=== PATIENT | male | born 1995 | race Caucasian/White ===

== ENCOUNTER 2023-09-04 17:29 | Observation (INO) | payer MEDICAID, SELFPAY ==
[2023-09-04 17:30] VITALS: BP 144/99; PULSE 114; RESP 18; TEMP 36.8; O2SAT 99; BMI 26.3
[2023-09-04 19:02] LABS: Amphetamine Urine VISTA NEGATIVE (<1000 ng/mL); Barbiturate Urine VISTA NEGATIVE (< 200 ng/mL); Benzodiazepine Urine VISTA NEGATIVE (< 200 ng/mL); Cocaine Urine VISTA NEGATIVE (< 300 ng/mL); Ecstacy Urine VISTA NEGATIVE (< 500 ng/mL); Methadone Urine VISTA NEGATIVE (< 300 ng/mL); PCP Urine VISTA NEGATIVE (< 25 ng/mL); THC Urine VISTA NEGATIVE (< 50 ng/mL); Vista UDS pH Range 5
[2023-09-04 19:34] VITALS: BP 139/88; PULSE 103; RESP 17; O2SAT 97
[2023-09-04 19:54] LABS: Absolute Lymphocyte Count 1.73 X10^3/uL (0.83-4.51); Basophil# 0.07 X10^3/uL; Basophil% 0.8 % (0-1); Eosinophil# 0.12 X10^3/uL; Eosinophils% 1.4 % (0-5); Hematocrit 40.5 % (40-54); Hemoglobin 13.6 g/dL (13.0-16.5); Lymphocyte # 1.73 X10^3/ul (0.83-4.51); Lymphocyte % 19.7 % (19-41); Mean Corp Hgb Conc 33.6 g/dL (32-36); Mean Corpuscular Hgb 29.5 pg (27.0-32.0); Mean Corpuscular Volume 87.9 fL (80-94); Monocyte# 0.85 X10^3/uL; Monocyte% 9.7 % (0-10); NRBC Flagged by Analyzer 0 % (0-5); Neutrophil # 5.96 X10^3/uL (2.7-7.7); Neutrophil % 67.9 % (47-70); Platelet Count 459 K/mm3 (150-450); RBC Distribution Width CV 12.9 % (11.6-14.6); RBC Distribution Width SD 41.6 fl (35.1-43.9); Red Blood Count 4.61 M/mm3 (4.6-6.2); White Blood Count 8.8 K/mm3 (4.4-11.0)
[2023-09-04 20:22] LABS: Anion Gap 5 (5-15); BUN 21 mg/dL (7-18); BUN/Creat Ratio 24.1 RATIO (10-20); Calcium,Total 8.9 mg/dL (8.5-10.1); Chloride 103 mmol/L (98-107); Creatinine, Serum 0.87 mg/dL (0.70-1.30); EST Glomerular Filtration Rate 109 mL/min (>60); Est Glom Filt Rate - Afr Amer 132 mL/min (>60); Estimated Creatinine Clearance 128.19 ml/min; Glucose 99 mg/dL (74-106); Potassium 3.7 mmol/L (3.5-5.1); Sodium Level 136 mmol/L (136-145)
--- NOTE | 2023-09-04 20:24 | HP.PCM.HOS_ITS ---
[facility] - General General Date of Admission: 09/04/23 Date of Service: 09/04/23 Chief Complaint: Wants help to quit heroin HPI Narrative YANIRA ESQUIVEL, is a 28 M with a past medical history of tobacco abuse and heroin abuse for the past year with patient routinely using approximately 1 g/day who presents to [facility] ER complaining that he wants help to quit using heroin. Mr. Esquivel reports his symptoms began approxima tely 24 hours prior to admission when he decided that he needed to quit after multiple members of his family strongly encouraged him to do so. He admits to anxiety and obsessive thoughts about getting high but he denies fevers, chills, nausea, vomiting or diarrhea. In the ER he was diagnosed with impending opiate withdrawal in the setting of chronic heroin abuse and he was then admitted to the general medical floor for medical stabilization and detoxification for a stay that is expected to extend beyond 48 hours [facility] Medical History Hypertension Hypertension Substance abuse Home Medications NK 09/04/23 [History Last Taken Unknown] Allergy/AdvReac Type Severity Reaction Status Date / Time No Known Allergies Allergy Verified 09/04/23 17:31 Social History Smoking Status: Never smoker ROS ROS Narrative Review of systems: Constitutional: Patient denies fever or chills Eyes: Patient denies visual changes ENT: Patient denies runny nose or sore throat Respiratory: Patient denies shortness of breath or cough Cardiovascular: Patient denies chest pain or palpitations Gastrointestinal: Patient denies abdominal pain, nausea, vomiting or diarrhea Genitourinary: Patient denies dysuria or urinary frequency Integumentary: Patient denies abscess or rash Allergy: Patient denies urticaria 14 point review systems otherwise negative except for positives noted above in HPI. Vital Signs Vital Signs Vital Signs: 09/04/23 17:30 09/04/23 19:34 Temperature 98.2 F Temperature Source Temporal Pulse Rate 114 H 103 H Respiratory Rate 18 17 Blood Pressure 144/99 H 139/88 H Blood Pressure Mean 114 105 Pulse Ox 99 97 Oxygen Delivery Method Room Air Weight Weight: 183 lb 11.2 oz Body Mass Index (BMI) 26.3 Physical Exam Const alert, oriented x3, no apparent distress, average body habitus and healthy appea ring General Appearance: cooperative HEENT normocephalic, head/scalp atraumatic, hearing grossly normal bilaterally, moist oral mucous membranes and oropharynx normal Eyes PERRL, EOMs intact bilaterally and conjunctivae normal Neck no lymphadenopathy, supple, no JVD and no carotid bruits Resp normal respiratory effort, no retractions, no use of accessory muscles and clear to auscultation bilaterally Cardio regular rate and regular rhythm GI normal to inspection, nondistended, normoactive bowel sounds, soft to palpation, non-tender and non-distended Extremity normal to inspection, full ROM and no clubbing, cyanosis or edema Skin Skin Narrative: Patient's both upper extremities are heavily tattooed. Neuro oriented x3, CN's II-XII intact bilaterally, moves all extremities and no focal motor deficits Sensorium / Orientation: awake, alert, oriented to person, oriented to place and oriented to time Speech: speech normal Motor Exam: strength 5/5 throughout Psych affect normal Results Lab / Micro Data Attestation: I reviewed the patient's lab results. 09/04/23 19:40 09/04/23 19:40 Labs: Laboratory Results - last 24 hr 09/04/23 18:15: Urine Opiates Screen NEGATIVE, Urine Methadone Screen NEGATIVE, Ur Barbiturates Screen NEGATIVE, Ur Phencyclidine Scrn NEGATIVE, Ur Amphetamines Screen NEGATIVE, MDMA (Ecstasy) Screen NEGATIVE, U Benzodiazepines Scrn NEGATIVE, Urine Cocaine Screen NEGATIVE, U Cannabinoids Screen NEGATIVE, Ur Drug Screen Comment 09/04/23 19:40: WBC 8.8, RBC 4.61, Hgb 13.6, Hct 40.5, MCV 87.9, MCH 29.5, MCHC 33.6, RDW Std Deviation 41.6, RDW Coeff of Adeel 12.9, Plt Count 459 H, MPV 9.0, Immature Gran % (Auto) 0.500, Neut % (Auto) 67.9, Lymph % (Auto) 19.7, [place] % (Auto) 9.7, Eos % (Auto) 1.4, Baso % (Auto) 0.8, Absolute Neuts (auto) 6.0, A bsolute Lymphs (auto) 1.73, Nucleated RBC % 0, Sodium 136, Potassium 3.7, Chloride 103, Carbon Dioxide 28.0, Anion Gap 5, BUN 21 H, Creatinine 0.87, Estim Creat Clear Calc 128.19, Est GFR (MDRD) Af Amer 132, Est GFR (MDRD) Non-Af 109, BUN/Creatinine Ratio 24.1 H, Glucose 99, Calcium 8.9 Assessment & Plan Assessment/Plan (1) Opiate addiction: QUALIFIERS: Substance use status: uncomplicated Qualified Code(s): F11.20 - Opioid dependence, uncomplicated PLAN: Plan 1. Impending acute opiate withdrawal in the setting of chronic heroin abuse - Admit to general medical floor for treatment under opiate withdrawal protocol. Heroin abuse as well as other illicit drug use was strongly discouraged. Finally, we will consult addiction counselor and case management to help this patient formulate and execute a plan for sobriety. 2. Tobacco abuse - Tobacco cessation was strongly encouraged. Give nicotine patch to control cravings. 3. DVT prophylaxis - Lovenox 40 mg subcu daily. Total time: Approximately 40 minutes. Charges/Coding Visit Charges Inpatient E&M: 75190 Init Hosp L1
[2023-09-04 20:33] LABS: Alcohol, Blood (Medical)-Serum < 3.0 mg/dL
[2023-09-04 21:43] VITALS: BMI 25.2
[2023-09-04 21:51] VITALS: BP 154/86; PULSE 89; RESP 16; TEMP 36.6; O2SAT 100
[2023-09-04] MEDS: MELATONIN 3 MG TABLET PO (22:57)
[2023-09-04] MEDS: hydrOXYzine PAM 25 MG Capsule 50 MG PO (22:57)
[2023-09-05 04:00] VITALS: BP 119/88; PULSE 78; RESP 16; TEMP 36.8; O2SAT 100
[2023-09-05] MEDS: Gabapentin 300 MG Capsule PO (04:22)
[2023-09-05] MEDS: Buprenorphine HCl 2 MG TAB.SUBL SL ×3 (04:33→20:22)
[2023-09-05] MEDS: Methocarbamol 750 MG Tablet PO ×3 (06:03→20:31)
[2023-09-05] MEDS: hydrOXYzine PAM 25 MG Capsule 50 MG PO ×4 (06:04→18:20)
[2023-09-05] MEDS: Dicyclomine 10 MG Capsule 20 MG PO (07:26)
[2023-09-05] MEDS: Acetaminophen 325 MG Tablet 650 MG PO ×2 (07:27→20:31)
[2023-09-05] MEDS: cloNIDine HCl 0.1 MG Tablet PO ×2 (07:27→15:33)
[2023-09-05 09:12] VITALS: BP 139/85; PULSE 93; RESP 18; TEMP 36.6; O2SAT 98
--- NOTE | 2023-09-05 11:32 | ADDICTION ---
This entry writer met with PT to conduct ASAM, MSE, AUDIT, DUDIT assessments and to plan for d/c. PT A+Ox4 and participated actively. All assessments completed and placed in PT's chart. PT plans to f/u with treatment services, however he wanted to discuss it with his family upon d/c. This worker offered resources. PT did not indicate a need for transportation post d/c from [facility].
[2023-09-05 14:06] VITALS: BP 129/79; PULSE 83; RESP 18; TEMP 36.5; O2SAT 100
--- NOTE | 2023-09-05 15:14 | PCM.PN.HOSP ---
Reason for Visit Reason for Visit: Diagnoses Opioid dependence, uncomplicated (09/04/23) Subjective Subjective Patient laying on side in bed, thinks the medicine might be helping, feeling tired Objective Data Objective Data Vital Signs: Vital Signs Temp Pulse Resp BP Pulse Ox O2 Del Method 97.7 F L 83 18 129/79 H 100 Room Air 09/05/23 14:06 09/05/23 14:06 09/05/23 14:06 09/05/23 14:06 09/05/23 14:06 09/05/23 14:06 Oxygen Delivery Method Room Air Weight: 79.832 kg Body Mass Index (BMI) 25.2 Lab / Micro Data 09/04/23 19:40 09/04/23 19:40 Labs: Laboratory Results - last 24 hr 09/04/23 18:15: Urine Opiates Screen NEGATIVE, Urine Methadone Screen NEGATIVE, Ur Barbiturates Screen NEGATIVE, Ur Phencyclidine Scrn NEGATIVE, Ur Amphetamines Screen NEGATIVE, MDMA (Ecstasy) Screen NEGATIVE, U Benzodiazepines Scrn NEGATIVE, Urine Cocaine Screen NEGATIVE, U Cannabinoids Screen NEGATIVE, Ur Drug Screen Comment 09/04/23 19:40: WBC 8.8, RBC 4.61, Hgb 13.6, Hct 40.5, MCV 87.9, MCH 29.5, MCHC 33.6, RDW Std Deviation 41.6, RDW Coeff of Adeel 12.9, Plt Count 459 H, MPV 9.0, Immature Gran % (Auto) 0.500, Neut % (Auto) 67.9, Lymph % (Auto) 19.7, [place] % (Auto) 9.7, Eos % (Auto) 1.4, Baso % (Auto) 0.8, Absolute Neuts (auto) 6.0, Absolute Lymphs (auto) 1.73, Nucleated RBC % 0, Sodium 136, Potassium 3.7, Chloride 103, Carbon Dioxide 28.0, Anion Gap 5, BUN 21 H, Creatinine 0.87, Estim Creat Clear Calc 128.19, Est GFR (MDRD) Af Amer 132, Est GFR (MDRD) Non-Af 109, BUN/Creatinine Ratio 24.1 H, Glucose 99, Calcium 8.9, Ethyl Alcohol < 3.0 Physical Exam Narrative General: Alert HEENT: Atraumatic, normocephalic Eyes: Resting with eyes closed comfortably Neck: Supple Respiratory: normal respiratory effort GI: nondistended Extremities: Curled up in bed under covers Neuro: No overt focal neurological deficits Psych: Minimally cooperative Assessment & Plan Assessment/Plan (1) Opiate addiction: QUALIFIERS: Substance use status: uncomplicated Qualified Code(s): F11.20 - Opioid dependence, uncomplicated PLAN: Plan 1. Impending acute opiate withdrawal in the setting of chronic heroin abuse - Admit to general medical floor for treatment under opiate withdrawal protocol. Heroin abuse as well as other illicit drug use was strongly discouraged. Finally, we will consult addiction counselor and case management to help this patient formulate and execute a plan for sobriety. -09/05: Continue Subutex taper, continue other supportive medications 2. Tobacco abuse - Tobacco cessation was strongly encouraged. Give nicotine patch to control cravings. 3. DVT prophylaxis -low risk, ambulatory Total time: Approximately 22 minutes. Charges/Coding Visit Charges Inpatient E&M: 17563 [facility] Hosp L1
[2023-09-05] MEDS: MELATONIN 3 MG TABLET PO (20:30)
[2023-09-05 20:34] VITALS: BP 118/83; PULSE 93; RESP 16; TEMP 36.9; O2SAT 100
[2023-09-06] MEDS: Methocarbamol 750 MG Tablet PO ×2 (05:16→18:54)
[2023-09-06] MEDS: Buprenorphine HCl 2 MG TAB.SUBL SL ×3 (05:16→21:14)
[2023-09-06] MEDS: hydrOXYzine PAM 25 MG Capsule 50 MG PO ×3 (05:17→18:57)
[2023-09-06 05:29] VITALS: BP 123/79; PULSE 78; RESP 16; TEMP 36.4; O2SAT 100
--- NOTE | 2023-09-06 08:15 | PCM.PN.HOSP ---
Reason for Visit Reason for Visit: Diagnoses Opioid dependence, uncomplicated (09/04/23) Subjective Subjective Patient in bed with covers pulled over her head, superficially cooperative, has no acute complaints Objective Data Objective Data Vital Signs: Vital Signs Temp Pulse Resp BP Pulse Ox O2 Del Method 97.6 F L 78 16 123/79 H 100 Room Air 09/06/23 05:29 09/06/23 05:29 09/06/23 05:29 09/06/23 05:29 09/06/23 05:29 09/06/23 05:29 Oxygen Delivery Method Room Air Weight: 79.832 kg Body Mass Index (BMI) 25.2 Lab / Micro Data 09/04/23 19:40 09/04/23 19:40 Physical Exam Narrative Patient lying in bed with blankets pulled over her head when asking to speak with him patient remains in same state and leans covers over her head, minimally interactive and minimally willing to cooperate/superficial cooperation Assessment & Plan Assessment/Plan (1) Opiate addiction: QUALIFIERS: Substance use status: uncomplicated Qualified Code(s): F11.20 - Opioid dependence, uncomplicated PLAN: Plan 1. Impending acute opiate withdrawal in the setting of chronic heroin abuse - Admit to general medical floor for treatment under opiate withdrawal protocol. Heroin abuse as well as other illicit drug use was strongly discouraged. Finally, we will consult addiction counselor and case management to help this patient formulate and execute a plan for sobriety. -09/05: Continue Subutex taper, continue other supportive medications -09/06: Patient not particularly cooperative however tolerating taper, will likely be able to DC home tomorrow 2. Tobacco abuse - Tobacco cessation was strongly encouraged. Give nicotine patch to control cravings. 3. DVT prophylaxis -low risk, ambulatory Total time: Approximately 22 minutes. Charges/Coding Visit Charges Inpatient E&M: 20432 Subs Hosp L1
[2023-09-06 09:50] VITALS: BP 136/74; PULSE 78; RESP 18; TEMP 36.6; O2SAT 95
[2023-09-06] MEDS: cloNIDine HCl 0.1 MG Tablet PO ×2 (13:26→21:14)
--- NOTE | 2023-09-06 13:36 | ADDICTION ---
Pt was met with for residential screening d/t pt interest in continuing [facility] care in an inpatient setting. Pt was provided education on tx options available and risk factors associated with being discharged from detox back into the community. Pt admits he is at risk of relapse and overdose if he does not follow up with a structured and supervised residential placement. Pt states 3 days just isn't enough. Pt reports severe cravings, using thoughts, discomfort, body aches, and anxiety w/restlessness. Pt was encouraged to discuss his worsening sxs with RN. Pt was assessed for residential at [facility] with [facility] and his admission was approved by admit team. Pt is scheduled to admit to [facility] on 09/08/23. [facility] staff to transport pt to [facility] on Friday. It is recommended that this pt remain in detox and follow through with a direct admit to residential d/t severity of pt's risk factors.
[2023-09-06 16:07] VITALS: BP 112/72; PULSE 106; RESP 18; TEMP 36.6; O2SAT 99
[2023-09-06 21:05] VITALS: BP 103/54; PULSE 82; RESP 16; TEMP 36.7; O2SAT 98
[2023-09-06] MEDS: Acetaminophen 325 MG Tablet 650 MG PO (21:13)
[2023-09-06] MEDS: MELATONIN 3 MG TABLET PO (21:14)
[2023-09-07] MEDS: Buprenorphine HCl 2 MG TAB.SUBL SL ×2 (04:55→16:41)
[2023-09-07] MEDS: hydrOXYzine PAM 25 MG Capsule 50 MG PO ×3 (04:55→21:41)
[2023-09-07 04:58] VITALS: BP 113/71; PULSE 80; RESP 17; TEMP 36.6; O2SAT 100
--- NOTE | 2023-09-07 07:47 | PCM.PN.HOSP ---
Reason for Visit Reason for Visit: Diagnoses Opioid dependence, uncomplicated (09/04/23) Subjective Subjective No acute complaints, agreeable to inpatient rehab tomorrow Objective Data Objective Data Vital Signs: Vital Signs Temp Pulse Resp BP Pulse Ox O2 Del Method 97.8 F 80 17 113/71 100 Room Air 09/07/23 04:58 09/07/23 04:58 09/07/23 04:58 09/07/23 04:58 09/07/23 04:58 09/07/23 04:58 Oxygen Delivery Method Room Air Weight: 79.832 kg Body Mass Index (BMI) 25.2 Lab / Micro Data 09/04/23 19:40 09/04/23 19:40 Physical Exam Narrative Lying in bed in no acute distress with eyes resting comfortably, when trying to talk to patient he turns to the side and pulls covers over him. Not acutely distressed Assessment & Plan Assessment/Plan (1) Opiate addiction: QUALIFIERS: Substance use status: uncomplicated Qualified Code(s): F11.20 - Opioid dependence, uncomplicated PLAN: Plan 1. Impending acute opiate withdrawal in the setting of chronic heroin abuse - Admit to general medical floor for treatment under opiate withdrawal protocol. Heroin abuse as well as other illicit drug use was strongly discouraged. Finally, we will consult addiction counselor and case management to help this patient formulate and execute a plan for sobriety. -09/05: Continue Subutex taper, continue other supportive medications -09/06: Patient not particularly cooperative however tolerating taper, will likely be able to DC home tomorrow -09/07: Patient's brother will not let patient come back without going to an inpatient rehab, patient now agreeable to inpatient rehab and will have bed and transport tomorrow, will DC tomorrow to rehab 2. Tobacco abuse - Tobacco cessation was strongly encouraged. Give nicotine patch to control cravings. 3. DVT prophylaxis -low risk, ambulatory Total time: Approximately 22 minutes. Charges/Coding Visit Charges Inpatient E&M: 70514 [facility] Hosp L1
[2023-09-07 10:00] VITALS: BP 138/85; PULSE 82; RESP 18; TEMP 36.6; O2SAT 100
[2023-09-07 15:50] VITALS: BP 115/78; PULSE 90; RESP 18; TEMP 36.6; O2SAT 100
[2023-09-07 15:54] VITALS: PULSE 90; RESP 18; O2SAT 100
[2023-09-07] MEDS: cloNIDine HCl 0.1 MG Tablet PO (17:51)
[2023-09-07 21:33] VITALS: BP 109/85; PULSE 93; RESP 16; TEMP 36.5; O2SAT 100
[2023-09-07] MEDS: MELATONIN 3 MG TABLET PO (21:41)
[2023-09-08 04:42] VITALS: BP 119/92; PULSE 74; RESP 16; TEMP 36.4; O2SAT 98
--- NOTE | 2023-09-08 07:34 | DCINST_ITS ---
Discharge Instructions Diet Discharge Diet: No restrictions Activity Discharge Activity: Return to Normal Activity Follow Up Care Test Results: Test results from this visit will be discussed in further detail at your follow- up appointment, if applicable. Discharge Plan Admission Admit Date/Time: 09/04/23 20:37 Primary Reason for Your Visit: Opioid detox Attending Provider: Gerri Flower Primary Care Provider: Care Physician,No Primary Consulting Providers: Edison Wolfe Instructions Patient Instructions: ED Opiate Abuse Additional Instructions / Restrictions: - It is strongly advised that you refrain from any substance use. Please call [facility] located at [address] [place] [phone] (ph [phone]) if you are interested in further resources -If you do not have a primary care physician of list of local primary care physicians can be provided for you upon discharge. Please ask for this list prior to discharge Discharge Orders/Prescriptions Prescriptions: No Action NK Referrals / Follow Up: Care Physician,No Primary [Primary Care Provider] - ( -If you do not have a primary care physician of list of local primary care physicians can be provided for you upon discharge. Please ask for this list prior to discharge ) Disposition Disposition (needs filled in before D/C Order can be placed): DC/Tx to Another Type of HCF
--- NOTE | 2023-09-08 07:36 | DS.PCM_ITS ---
Providers Date of Admission: 09/04/23 Date of Discharge: 09/08/23 Primary Care Physician: Alanis Primary Care Phys Reason For Visit: IMPENDING ACUTE OPIATE WITHDRAWL Diagnosis Discharge Diagnosis (1) Opiate addiction: Status: Acute Code(s): F11.20 - Opioid dependence, uncomplicated Qualifiers: Substance use status: uncomplicated Qualified Code(s): F11.20 - Opioid dependence, uncomplicated Plan 1. Impending acute opiate withdrawal in the setting of chronic heroin abuse 2. Tobacco abuse Medications at Discharge Home Medications NK 09/04/23 Hospital Course Summary of Care Provided Minutes Spent on Discharge: 25 Hospital Course: Patient was admitted on 09/04/23 requesting detox from opioids. Patient was ad mitted and detox protocol ordered. They completed their detox and were discharged to inpatient rehab in stable condition. On the day of discharge no new medical complaints voiced. Physical Exam Narrative Laying in bed in no acute distress Weight / BMI Weight Weight: 79.832 kg Body Mass Index (BMI) 25.2 ABG / Lab / Microbiology Data 09/04/23 19:40 09/04/23 19:40 D/C Instructions Discharge Diet: No restrictions Meaningful Use Info Meaningful Use Diagnoses (Choose all that apply): None applicable Discharge Plan Admission Admit Date/Time: 09/04/23 20:37 Primary Reason for Your Visit: Opioid detox Attending Provider: Gerri Flower Primary Care Provider: Care Physician,No Primary Consulting Providers: Edison Wolfe Instructions Patient Instructions: ED Opiate Abuse Additional Instructions / Restrictions: - It is strongly advised that you refrain from any substance use. Please call Replaced by [facility] located at [address] [place], [place] [phone] (ph [phone]) if you are interested in further resources -If you do not have a primary care physician of list of local primary care physicians can be provided for you upon discharge. Please ask for this list prior to discharge Discharge Orders/Prescriptions Prescriptions: No Action NK Referrals / Follow Up: Care Physician,No Primary [Primary Care Provider] - ( -If you do not have a primary care physician of list of local primary care physicians can be provided for you upon discharge. Please ask for this list prior to discharge ) Disposition Disposition (needs filled in before D/C Order can be placed): DC/Tx to Another Type of HCF Charges/Coding Visit Charges Inpatient E&M: 82823 Disch Hosp
--- NOTE | 2023-09-08 09:17 | PHA.DC.MR.R ---
Pharmacy [place] Med Reconciliation Pharmacy Service has performed discharge medication reconciliation for this patient. The patient's discharge medication list was reviewed for discrepancies and discrepancies were resolved. Medications at Discharge Home Medications NK 09/04/23
[2023-09-08 09:23] VITALS: BP 118/78; PULSE 111; RESP 18; TEMP 36.6; O2SAT 98
[2023-09-08] MEDS: Methocarbamol 750 MG Tablet PO (09:26)
[2023-09-08] MEDS: hydrOXYzine PAM 25 MG Capsule 50 MG PO (09:26)
[2023-09-08] MEDS: cloNIDine HCl 0.1 MG Tablet PO (09:26)
--- NOTE | 2023-09-20 07:34 | EX.ED.SAOD ---
HPI History of Present Illness Chief Complaint: Substance Abuse Informant: patient Narrative Narrative: Patient presents requesting treatment for opiate addiction. Patient has a history of use of heroin as well as tobacco. Uses up to 1 g a day of heroin. He gets very anxious and nervous if he quits. He does get some shakes and itching but usually does not get diarrhea or vomiting. He denies prior detox. He states nothing specific occurred such as a legal event to get him to this point. But he has been been getting a lot of push from family as to finally get this taken care of. He feels if he could get physically off the chemical he has enough going on in his life that he could stay clean. [facility] Medical History Hypertension Hypertension Substance abuse Home Medications NK 09/04/23 [History Last Taken Unknown] Allergy/AdvReac Type Severity Reaction Status Date / Time No Known Allergies Allergy Verified 09/04/23 17:31 Social History Smoking Status: Never smoker ROS ROS ED ROS Narrative A complete review of systems was performed and is negative except as documented in the history of present illness. Some specific details below. Constitutional: No recent fevers or chills. No malaise. ENT: No difficulty swallowing. No swelling. No pain. No history of GERD. CV: No chest pain or palpitations. Respiratory: No dyspnea. No hemoptysis. No difficulty taking breaths. GI: No symptoms now. He states he usually does not get diarrhea but he does not think he is ever quit long enough to withdrawal badly. : No frequency dysuria or hematuria. Musculoskeletal: No recent trauma. No pains. Skin: No rash. Nondiaphoretic. Neuro: No weakness or numbness. Endocrine: No polyuria or polydipsia. Constitutional Constitutional ED: Denies fever(s) Eyes Eyes: Denies change in vision ENT ENT ED: Denies rhinorrhea Cardiovascular Cardiovascular: Denies chest pain Respiratory/Chest Respiratory/Chest: Denies cough Gastrointestinal Gastrointestinal: Denies diarrhea, nausea or vomiting Musculoskeletal Musculoskeletal: Denies back pain Integumentary Denies rash Neurologic Neurologic: Denies headache(s) Psychiatric Psychiatric: Reports anxiety; Denies suicidal ideation or suicidal thoughts Hematologic/Lymphatic Hematologic/Lymphatic: Denies easy bruising Allergic/Immunologic Allergic/Immunologic ED: Denies urticaria EXAM Physical Exam Narrative Exam Narrative: CONSTITUTIONAL: Patient is nontoxic in appearance. The patient looks comfortable. He is cooperative HEENT: No notable trauma. Mucous membranes moist. EYES: No conjunctival injection. No icterus. CARDIOVASCULAR: Regular rate. Regular rhythm. No notable murmur. No JVD. RESPIRATORY: No respiratory distress. Breathing is unlabored. No wheezes. GASTROINTESTINAL: Not distended. Bowel sounds are normal. No tenderness. No guarding. No rebound. No palpable mass. No bruit. Overall benign abdomen GENITOURINARY: No CVA tenderness. MUSCULOSKELETAL: Atraumatic. No peripheral edema. No signs of infections NEUROLOGICAL: Patient is alert and appropriate. No focal deficit noted. SKIN: No noted rashes. No diaphoresis. No piloerection PSYCHIATRIC: Patient is calm. Mood is appropriate. MDM MDM MDM Narrative Medical decision making narrative: Patient's CBC is normal other than mild elevation of the platelets. Patient's basic metabolic panel was overall within normal limits. Minimal elevation of the BUN to creatinine ratio. Serum ethanol level is negative. Patient's urine toxicology screen is negative. Case is discussed with hospitalist. This patient does have fairly high use of heroin. He does get symptoms but usually starts using before they get bad. I think he is at risk withdrawal. He will be admitted. Management Discussion w/another healthcare provider: Hospitalist Discharge Plan Dx/Rx/DC Orders Clinical Impression: Opiate addiction Disposition Disposition: Acute Care Hospital [facility] Discharge Date/Time: 09/04/23 21:27
== END 2023-09-08 11:40 ==
LOC: ED 19:54 → MS3 09-05 06:52
PROVIDERS: Admitting Provider Internal Medicine; Emergency Provider Emergency Medicine; Visit Provider Internal Medicine
DX: F11.23 Opioid dependence with withdrawal (principal); I10 Essential (primary) hypertension; F17.200 Nicotine dependence, unspecified, uncomplicated
CPT/HCPCS: 80048; 80307; 82077; 85025; 99221; 99283; G0378